=== PATIENT | female | born 1945 | race African-American/Black ===

== ENCOUNTER 2019-01-12 07:21 | Inpatient (IN) ==
[2019-01-12] MEDS ORDERED: ONDANSETRON 4 MG/2 ML VIAL IV STA (08:04)
[2019-01-12] MEDS ORDERED: SODIUM CHLORIDE 0.9% 1,000 ML IV STA (08:04)
[2019-01-12 09:24] LABS: Albumin 3.3 G/DL (3.4-5.0); Bilirubin,Total 0.4 MG/DL (0.2-1.0); Calcium 8.6 MG/DL (8.5-10.1); Osmolality,Calculated 274.7 MOS/KG (273-304); Total Protein 7.7 G/DL (6.4-8.3)
[2019-01-12 10:07] LABS: Basophils % 0.3 % (0.0-0.8); Lymphocytes # 0.6 10*3/uL (1.4-4.0); Lymphocytes % 16.6 % (21.3-54.2); Mean Platelet Volume 9.9 FL (9.6-12.0); Monocytes % 17.4 % (1.7-12.7); Neutrophils % 65.7 % (38.7-73.9); Platelet Count 217 T/CUMM (130-400); Red Blood Count 5.06 MC/CUMM (3.8-5.5); Red Cell Distribution Width 16.6 % (9.3-17.3); White Blood Count 3.4 T/CUMM (4-12)
[2019-01-12 10:34] LABS: Band Neutrophils 13 % (0-10); Hypochromasia 1+; Lymphocytes 18 % (20-55); Platelet Estimate Adequate; Segmented Neutrophils 50 % (50-85); Total Cells Counted 100
[2019-01-12] MEDS ORDERED: ACETAMINOPHEN 325 MG TABLET ONE (10:37)
[2019-01-12] MEDS ORDERED: ACETAMINOPHEN 325 MG TABLET PO ONE (10:43)
[2019-01-12 13:21] LABS: Apearance,Urine CLEAR (Clear); Bilirubin,Urine Negative (Negative); Blood, Urine Small mg/dL (Negative); Glucose,Urine (UA) Negative (Negative); Ketones,Urine Negative (Negative); Mucus,Urine Occasional /LPF (Occasional); Nitrite,Urine Negative (Negative); Protein,Urine Negative; RBC,Urine 1 /HPF (0-4); Squamous Epithelial Cell,Urine Occasional /HPF (0-10); Urine Color Yellow (Yellow); Urine Specific Gravity 1.018 (1.001-1.035); Urine Urobilinogen < 2.0 EU/DL (0.2-1.0); WBC,Urine 1 /HPF (0-6)
[2019-01-12] MEDS: VANCOMYCIN 50 MG/ML 60 ML/BOTTLE PO SCH ×2 (15:13→18:32)
[2019-01-12] MEDS: metroNIDAZOLE INJ 500 MG in PREMIX 1 EACH IV SCH ×2 (15:13→21:43)
[2019-01-12] MEDS: CIPROFLOXACIN INJ 400 MG in PREMIX 1 EACH IV SCH (15:14)
[2019-01-12] MEDS ORDERED: ACETAMINOPHEN 325 MG TABLET PO PRN (18:42)
[2019-01-12] MEDS ORDERED: MAPROTILINE PO SCH (21:00)
[2019-01-12] MEDS: CHOLESTYRAMINE 4 GM PACK PO SCH (21:44)
[2019-01-13] MEDS: CIPROFLOXACIN INJ 400 MG in PREMIX 1 EACH IV SCH ×2 (00:04→14:28)
[2019-01-13] MEDS: VANCOMYCIN 50 MG/ML 60 ML/BOTTLE PO SCH ×5 (00:04→23:40)
[2019-01-13 05:23] LABS: Calcium 8.2 MG/DL (8.5-10.1); Osmolality,Calculated 274.5 MOS/KG (273-304)
[2019-01-13] MEDS: metroNIDAZOLE INJ 500 MG in PREMIX 1 EACH IV SCH ×2 (05:44→14:31)
[2019-01-13 06:43] LABS: Basophils % 0.5 % (0.0-0.8); Eosinophils # 0.1 10*3/uL (0.0-0.87); Hematocrit 37.7 VOL% (35.7-47.0); Immature Granulocytes % 0.3 %; Immature Granulocytes Absolute 0.01 #; Lymphocytes # 1.2 10*3/uL (1.4-4.0); Lymphocytes % 28.8 % (21.3-54.2); Mean Corpuscular HGB Conc 30.8 GM/DL (32-36); Mean Corpuscular Volume 82.3 FL (87-102); Mean Platelet Volume 9.5 FL (9.6-12.0); Monocytes % 19.3 % (1.7-12.7); Neutrophils % 49.1 % (38.7-73.9); Platelet Count 209 T/CUMM (130-400); Red Blood Count 4.58 MC/CUMM (3.8-5.5); Red Cell Distribution Width 16.6 % (9.3-17.3)
[2019-01-13 06:47] LABS: Hemoglobin 11.6 GM/DL (12.0-16.0)
[2019-01-13 06:49] LABS: Band Neutrophils 11 % (0-10); Eosinophils 3 % (0-10); Lymphocytes 30 % (20-55); Metamyelocytes 2 %; Platelet Estimate Normal; Segmented Neutrophils 33 % (50-85); Total Cells Counted 100
[2019-01-13 06:50] LABS: Anisocytosis 1+; Macrocytosis 1+
[2019-01-13] MEDS: CHOLESTYRAMINE 4 GM PACK PO SCH ×2 (09:45→21:21)
[2019-01-13] MEDS: FUROSEMIDE 20 MG TABLET PO SCH (09:45)
[2019-01-13] MEDS: POTASSIUM CHLORIDE 20 MEQ TABLET PO SCH (09:45)
[2019-01-13] MEDS: METOPROLOL TARTRATE 25 MG TABLET PO SCH (09:45)
[2019-01-13] MEDS: LOSARTAN/HCTZ 50-12.5 MG TABLET PO SCH (09:48)
[2019-01-13] MEDS: LOSARTAN 50 MG TABLET PO SCH (09:48)
[2019-01-13] MEDS: PIPERACILLIN/TAZOBACTAM 3,375 MG in SODIUM CHLORIDE 0.9% 100 ML IV SCH ×2 (17:02→23:40)
[2019-01-13] MEDS ORDERED: ONDANSETRON 4 MG/2 ML VIAL IV PRN (18:57)
[2019-01-13] MEDS: busPIRone 5 MG TABLET PO SCH (23:56)
[2019-01-14] MEDS: VANCOMYCIN 50 MG/ML 60 ML/BOTTLE PO SCH ×4 (06:03→23:43)
[2019-01-14] MEDS: FUROSEMIDE 20 MG TABLET PO SCH (08:56)
[2019-01-14] MEDS: METOPROLOL TARTRATE 25 MG TABLET PO SCH (08:56)
[2019-01-14] MEDS: LOSARTAN/HCTZ 50-12.5 MG TABLET PO SCH (08:56)
[2019-01-14] MEDS: LOSARTAN 50 MG TABLET PO SCH (08:57)
[2019-01-14] MEDS: POTASSIUM CHLORIDE 20 MEQ TABLET PO SCH (08:57)
[2019-01-14] MEDS: PIPERACILLIN/TAZOBACTAM 3,375 MG in SODIUM CHLORIDE 0.9% 100 ML IV SCH ×3 (08:58→23:40)
[2019-01-14] MEDS: busPIRone 5 MG TABLET PO SCH ×2 (09:01→23:48)
[2019-01-14] MEDS: CHOLESTYRAMINE 4 GM PACK PO SCH ×2 (09:01→23:48)
[2019-01-15 05:00] LABS: Basophils % 0.5 % (0.0-0.8); Eosinophils # 0.2 10*3/uL (0.0-0.87); Hematocrit 39.9 VOL% (35.7-47.0); Hemoglobin 12.1 GM/DL (12.0-16.0); Immature Granulocytes % 0.3 %; Immature Granulocytes Absolute 0.01 #; Lymphocytes # 1.7 10*3/uL (1.4-4.0); Lymphocytes % 45.6 % (21.3-54.2); Mean Corpuscular HGB Conc 30.3 GM/DL (32-36); Mean Corpuscular Volume 82.8 FL (87-102); Mean Platelet Volume 9.1 FL (9.6-12.0); Monocytes % 10.6 % (1.7-12.7); Platelet Count 215 T/CUMM (130-400); Red Blood Count 4.82 MC/CUMM (3.8-5.5); Red Cell Distribution Width 15.9 % (9.3-17.3); White Blood Count 3.8 T/CUMM (4-12)
[2019-01-15] MEDS: VANCOMYCIN 50 MG/ML 60 ML/BOTTLE PO SCH ×3 (05:33→19:04)
[2019-01-15 05:46] LABS: Eosinophils 4 % (0-10); Hypochromasia Slight; Lymphocytes 46 % (20-55); Platelet Estimate Adequate; Polychromasia Few; Segmented Neutrophils 45 % (50-85); Total Cells Counted 100
[2019-01-15 05:47] LABS: Calcium 8.7 MG/DL (8.5-10.1); Osmolality,Calculated 274.5 MOS/KG (273-304)
[2019-01-15] MEDS: PIPERACILLIN/TAZOBACTAM 3,375 MG in SODIUM CHLORIDE 0.9% 100 ML IV SCH ×2 (09:22→16:47)
[2019-01-15] MEDS: busPIRone 5 MG TABLET PO SCH ×2 (09:23→21:56)
[2019-01-15] MEDS: LOSARTAN 50 MG TABLET PO SCH (09:24)
[2019-01-15] MEDS: LOSARTAN/HCTZ 50-12.5 MG TABLET PO SCH (09:24)
[2019-01-15] MEDS: FUROSEMIDE 20 MG TABLET PO SCH (09:24)
[2019-01-15] MEDS: POTASSIUM CHLORIDE 20 MEQ TABLET PO SCH (09:24)
[2019-01-15] MEDS: CHOLESTYRAMINE 4 GM PACK PO SCH ×2 (09:25→21:55)
[2019-01-15] MEDS: METOPROLOL TARTRATE 25 MG TABLET PO SCH (09:25)
[2019-01-15] MEDS: LACTOBACILLUS RHAMNOSUS GG CAPSULE PO SCH (21:56)
[2019-01-16] MEDS: VANCOMYCIN 50 MG/ML 60 ML/BOTTLE PO SCH ×3 (00:55→13:00)
[2019-01-16] MEDS: PIPERACILLIN/TAZOBACTAM 3,375 MG in SODIUM CHLORIDE 0.9% 100 ML IV SCH ×3 (01:22→17:37)
[2019-01-16 08:07] LABS: Basophils % 0.6 % (0.0-0.8); Eosinophils # 0.2 10*3/uL (0.0-0.87); Eosinophils % 3.5 % (0.00-10.9); Hematocrit 45.5 VOL% (35.7-47.0); Hemoglobin 14.1 GM/DL (12.0-16.0); Immature Granulocytes % 0.4 %; Immature Granulocytes Absolute 0.02 #; Lymphocytes # 1.8 10*3/uL (1.4-4.0); Lymphocytes % 35.5 % (21.3-54.2); Mean Platelet Volume 8.9 FL (9.6-12.0); Monocytes % 12.8 % (1.7-12.7); Neutrophils % 47.2 % (38.7-73.9); Platelet Count 260 T/CUMM (130-400); Red Blood Count 5.48 MC/CUMM (3.8-5.5); Red Cell Distribution Width 15.9 % (9.3-17.3); White Blood Count 5.2 T/CUMM (4-12)
[2019-01-16 08:27] LABS: Band Neutrophils 1 % (0-10); Eosinophils 3 % (0-10); Hypochromasia 1+; Lymphocytes 33 % (20-55); Ovalocytes Slight; Platelet Estimate Adequate; Segmented Neutrophils 55 % (50-85); Total Cells Counted 100
[2019-01-16 08:35] LABS: Calcium 9.6 MG/DL (8.5-10.1); Osmolality,Calculated 276.5 MOS/KG (273-304)
[2019-01-16] MEDS: CHOLESTYRAMINE 4 GM PACK PO SCH ×2 (09:07→22:28)
[2019-01-16] MEDS: FUROSEMIDE 20 MG TABLET PO SCH (09:08)
[2019-01-16] MEDS: LOSARTAN/HCTZ 50-12.5 MG TABLET PO SCH (09:08)
[2019-01-16] MEDS: METOPROLOL TARTRATE 25 MG TABLET PO SCH (09:09)
[2019-01-16] MEDS: LOSARTAN 50 MG TABLET PO SCH (09:09)
[2019-01-16] MEDS: LACTOBACILLUS RHAMNOSUS GG CAPSULE PO SCH ×2 (09:09→22:28)
[2019-01-16] MEDS: busPIRone 5 MG TABLET PO SCH ×3 (09:09→22:32)
[2019-01-16] MEDS: POTASSIUM CHLORIDE 20 MEQ TABLET PO SCH (09:09)
[2019-01-17] MEDS: PIPERACILLIN/TAZOBACTAM 3,375 MG in SODIUM CHLORIDE 0.9% 100 ML IV SCH ×2 (01:45→09:42)
[2019-01-17 05:21] LABS: Basophils % 0.5 % (0.0-0.8); Eosinophils # 0.3 10*3/uL (0.0-0.87); Eosinophils % 4.5 % (0.00-10.9); Hematocrit 41.4 VOL% (35.7-47.0); Hemoglobin 12.8 GM/DL (12.0-16.0); Immature Granulocytes % 0.5 %; Immature Granulocytes Absolute 0.03 #; Lymphocytes # 2.2 10*3/uL (1.4-4.0); Mean Corpuscular HGB Conc 30.9 GM/DL (32-36); Mean Corpuscular Volume 81.7 FL (87-102); Mean Platelet Volume 8.9 FL (9.6-12.0); Monocytes % 12.7 % (1.7-12.7); Neutrophils % 43.8 % (38.7-73.9); Platelet Count 241 T/CUMM (130-400); Red Blood Count 5.07 MC/CUMM (3.8-5.5); White Blood Count 5.8 T/CUMM (4-12)
[2019-01-17 05:35] LABS: Calcium 9.3 MG/DL (8.5-10.1); Osmolality,Calculated 277.4 MOS/KG (273-304)
[2019-01-17] MEDS: hydrOXYzine HCL 25 MG TABLET PO PRN ×2 (05:43→10:09)
[2019-01-17 06:05] LABS: Anisocytosis 1+; Platelet Estimate Adequate
[2019-01-17] MEDS: VANCOMYCIN 50 MG/ML 60 ML/BOTTLE PO SCH ×2 (07:50→14:37)
[2019-01-17] MEDS: LOSARTAN 50 MG TABLET PO SCH (10:08)
[2019-01-17] MEDS: LACTOBACILLUS RHAMNOSUS GG CAPSULE PO SCH (10:08)
[2019-01-17] MEDS: METOPROLOL TARTRATE 25 MG TABLET PO SCH (10:08)
[2019-01-17] MEDS: FUROSEMIDE 20 MG TABLET PO SCH (10:08)
[2019-01-17] MEDS: busPIRone 5 MG TABLET PO SCH (10:08)
[2019-01-17] MEDS: LOSARTAN/HCTZ 50-12.5 MG TABLET PO SCH (10:08)
[2019-01-17] MEDS: POTASSIUM CHLORIDE 20 MEQ TABLET PO SCH (10:08)
[2019-01-17] MEDS: CHOLESTYRAMINE 4 GM PACK PO SCH (10:09)
[2019-01-17 12:21] VITALS: BP 111/70
== END 2019-01-17 15:31 | disposition home health service (06) | DRG 372 ==
LOC: EDBD → EDUNIT# → N.ED 07:21 → N.EDINP 11:47 → SUATTDRO 11:47 → N.TELEN 12:23
PROVIDERS: ADMIT Nurse Practitioner Family; ATTEND Internal Medicine

== ENCOUNTER 2019-02-11 13:11 | Inpatient (IN) ==
[2019-02-11] MEDS ORDERED: SODIUM CHLORIDE 0.9% 1,000 ML IV STA (13:26)
[2019-02-11] MEDS ORDERED: ONDANSETRON 4 MG/2 ML VIAL IV STA (13:26)
[2019-02-11 14:18] LABS: Basophils % 0.4 % (0.0-0.8); Eosinophils % 0.4 % (0.00-10.9); Hematocrit 30.9 VOL% (35.7-47.0); Hemoglobin 9.6 GM/DL (12.0-16.0); Immature Granulocytes % 0.6 %; Immature Granulocytes Absolute 0.03 #; Lymphocytes # 0.8 10*3/uL (1.4-4.0); Mean Corpuscular HGB Conc 31.1 GM/DL (32-36); Mean Corpuscular Volume 80.1 FL (87-102); Mean Platelet Volume 8.7 FL (9.6-12.0); Monocytes % 14.3 % (1.7-12.7); Neutrophils % 68.3 % (38.7-73.9); Platelet Count 384 T/CUMM (130-400); Red Blood Count 3.86 MC/CUMM (3.8-5.5); Red Cell Distribution Width 16.9 % (9.3-17.3); White Blood Count 5.1 T/CUMM (4-12)
[2019-02-11 14:28] LABS: Apearance,Urine Slightly Hazy (Clear); Bacteria,Urine Occasional /HPF (Few); Bilirubin,Urine Negative (Negative); Blood, Urine Small mg/dL (Negative); Glucose,Urine (UA) Negative (Negative); Hyaline Casts,Urine 1 /LPF (0-3); Ketones,Urine Negative (Negative); Mucus,Urine Occasional /LPF (Occasional); Nitrite,Urine Positive (Negative); Protein,Urine Negative; RBC,Urine 1 /HPF (0-4); Squamous Epithelial Cell,Urine Occasional /HPF (0-10); Urine Color Yellow (Yellow); Urine Specific Gravity 1.011 (1.001-1.035); Urine Urobilinogen < 2.0 EU/DL (0.2-1.0); WBC,Urine 13 /HPF (0-6)
[2019-02-11 14:44] LABS: Albumin 2.4 G/DL (3.4-5.0); Bilirubin,Total 0.4 MG/DL (0.2-1.0); Calcium 8.5 MG/DL (8.5-10.1); Osmolality,Calculated 261.5 MOS/KG (273-304); Total Protein 7.2 G/DL (6.4-8.3)
[2019-02-11 14:52] LABS: Anisocytosis 1+; Atypical Lymphocytes 1+; Band Neutrophils 2 % (0-10); Eosinophils 2 % (0-10); Hypochromasia 1+; Lymphocytes 14 % (20-55); Microcytosis 1+; Segmented Neutrophils 73 % (50-85); Total Cells Counted 100
[2019-02-11 14:53] LABS: Platelet Estimate Normal; Polychromasia Slight
[2019-02-11] MEDS ORDERED: cefTRIAXone 1,000 MG VIAL ONE (15:47)
[2019-02-11] MEDS ORDERED: SODIUM CHLORIDE 0.9% 100 ML IV ONE (15:48)
[2019-02-11] MEDS ORDERED: cefTRIAXone 1,000 MG in SODIUM CHLORIDE 0.9% 100 ML IV STA (15:53)
[2019-02-11] MEDS ORDERED: MORPHINE 4 MG/1 ML VIAL IV PRN (16:42)
[2019-02-11] MEDS ORDERED: PROMETHAZINE 25 MG/1 ML VIAL IM PRN (16:42)
[2019-02-11] MEDS: ONDANSETRON 4 MG/2 ML VIAL IV PRN (16:54)
[2019-02-11] MEDS: DEXTROSE 5% NACL 0.45% 1,000 ML IV SCH (18:15)
[2019-02-11] MEDS: metroNIDAZOLE INJ 500 MG in PREMIX 1 EACH IV SCH (18:20)
[2019-02-11] MEDS: CEFEPIME 2,000 MG in SYRINGE 1 EACH IV SCH (18:23)
[2019-02-11] MEDS ORDERED: predniSONE 50 MG TABLET PO ONE (18:24)
[2019-02-11] MEDS: FAMOTIDINE 20 MG/2 ML VIAL IV SCH (18:27)
[2019-02-11] MEDS: PANTOPRAZOLE 40 MG TABLET PO SCH (18:29)
[2019-02-11] MEDS: POTASSIUM CHLORIDE 20 MEQ TABLET PO SCH ×2 (18:29→20:59)
[2019-02-11] MEDS: hydrOXYzine HCL 25 MG TABLET PO PRN (18:37)
[2019-02-11] MEDS ORDERED: predniSONE 10 MG TABLET ONE (19:04)
[2019-02-11] MEDS: ACETAMINOPHEN 500 MG TABLET PO PRN (19:28)
[2019-02-11] MEDS: VANCOMYCIN 50 MG/ML 60 ML/BOTTLE PO SCH (19:56)
[2019-02-11] MEDS: CHOLESTYRAMINE 4 GM PACK PO SCH (20:58)
[2019-02-11] MEDS: busPIRone 5 MG TABLET PO SCH (20:59)
[2019-02-11] MEDS ORDERED: MAPROTILINE PO SCH (21:00)
[2019-02-12] MEDS ORDERED: CEFEPIME 1,000 MG in SYRINGE 1 EACH IV SCH
[2019-02-12] MEDS: VANCOMYCIN 50 MG/ML 60 ML/BOTTLE PO SCH ×4 (00:50→18:02)
[2019-02-12] MEDS: CEFEPIME 2,000 MG in SYRINGE 1 EACH IV SCH ×3 (00:51→17:56)
[2019-02-12] MEDS: metroNIDAZOLE INJ 500 MG in PREMIX 1 EACH IV SCH ×3 (00:52→17:43)
[2019-02-12] MEDS: FAMOTIDINE 20 MG/2 ML VIAL IV SCH ×2 (04:58→17:41)
[2019-02-12] MEDS: DEXTROSE 5% NACL 0.45% 1,000 ML IV SCH ×4 (05:02→17:00)
[2019-02-12 05:20] LABS: Basophils % 0.3 % (0.0-0.8); Hematocrit 32.5 VOL% (35.7-47.0); Hemoglobin 9.8 GM/DL (12.0-16.0); Immature Granulocytes % 0.5 %; Immature Granulocytes Absolute 0.02 #; Lymphocytes # 0.5 10*3/uL (1.4-4.0); Lymphocytes % 12.4 % (21.3-54.2); Mean Corpuscular HGB Conc 30.2 GM/DL (32-36); Mean Corpuscular Volume 80.6 FL (87-102); Mean Platelet Volume 8.6 FL (9.6-12.0); Monocytes % 4.3 % (1.7-12.7); Neutrophils % 82.5 % (38.7-73.9); Platelet Count 478 T/CUMM (130-400); Red Blood Count 4.03 MC/CUMM (3.8-5.5); Red Cell Distribution Width 16.8 % (9.3-17.3); White Blood Count 3.7 T/CUMM (4-12)
[2019-02-12 06:00] LABS: Albumin 2.4 G/DL (3.4-5.0); Bilirubin,Total 0.5 MG/DL (0.2-1.0); Calcium 8.9 MG/DL (8.5-10.1); Osmolality,Calculated 275.7 MOS/KG (273-304); Risk Ratio 3.56; Thyroid Stimulating Hormone 0.577 uIU/ml (0.358-3.74); Total Protein 7.4 G/DL (6.4-8.3); VLDL CHOLESTEROL 17.4 MG/DL
[2019-02-12] MEDS ORDERED: predniSONE 20 MG TABLET PO ONE ×2 (06:00)
[2019-02-12] MEDS ORDERED: diphenhydrAMINE CAP 50 MG CAPSULE PO ONE (06:00)
[2019-02-12 06:21] LABS: Band Neutrophils 12 % (0-10); Hypochromasia Slight; Lymphocytes 10 % (20-55); Platelet Estimate Normal; Segmented Neutrophils 78 % (50-85); Total Cells Counted 100
[2019-02-12 06:22] LABS: Polychromasia Few
[2019-02-12] MEDS: hydroCHLOROthiazide 25 MG TABLET PO SCH (09:36)
[2019-02-12] MEDS: OLMESARTAN 20 MG TABLET PO SCH (09:36)
[2019-02-12] MEDS: METOPROLOL TARTRATE 25 MG TABLET PO SCH (09:37)
[2019-02-12] MEDS: PANTOPRAZOLE 40 MG TABLET PO SCH (09:37)
[2019-02-12] MEDS: busPIRone 5 MG TABLET PO SCH ×2 (09:37→22:03)
[2019-02-12] MEDS: ASPIRIN EC 81 MG TABLET PO SCH (09:38)
[2019-02-12] MEDS: CHOLESTYRAMINE 4 GM PACK PO SCH ×2 (10:08→22:03)
[2019-02-12] MEDS: hydrOXYzine HCL 25 MG TABLET PO PRN (17:40)
[2019-02-12] MEDS: ACETAMINOPHEN 500 MG TABLET PO PRN (19:59)
[2019-02-13] MEDS: hydrOXYzine HCL 25 MG TABLET PO PRN ×2 (00:14→11:49)
[2019-02-13] MEDS: metroNIDAZOLE INJ 500 MG in PREMIX 1 EACH IV SCH ×3 (00:16→16:22)
[2019-02-13] MEDS: DEXTROSE 5% NACL 0.45% 1,000 ML IV SCH ×4 (00:17→19:27)
[2019-02-13] MEDS: VANCOMYCIN 50 MG/ML 60 ML/BOTTLE PO SCH ×4 (00:19→18:29)
[2019-02-13] MEDS: CEFEPIME 2,000 MG in SYRINGE 1 EACH IV SCH ×3 (02:28→17:24)
[2019-02-13 04:39] LABS: Basophils % 0.3 % (0.0-0.8); Hematocrit 30.6 VOL% (35.7-47.0); Hemoglobin 9.4 GM/DL (12.0-16.0); Immature Granulocytes % 0.5 %; Immature Granulocytes Absolute 0.03 #; Lymphocytes # 1.3 10*3/uL (1.4-4.0); Lymphocytes % 21.6 % (21.3-54.2); Mean Corpuscular HGB Conc 30.7 GM/DL (32-36); Mean Corpuscular Volume 79.5 FL (87-102); Mean Platelet Volume 8.7 FL (9.6-12.0); Monocytes % 13.6 % (1.7-12.7); Platelet Count 500 T/CUMM (130-400); Red Blood Count 3.85 MC/CUMM (3.8-5.5); Red Cell Distribution Width 16.7 % (9.3-17.3)
[2019-02-13 05:06] LABS: Calcium 8.7 MG/DL (8.5-10.1); Osmolality,Calculated 274.7 MOS/KG (273-304)
[2019-02-13 05:50] LABS: Band Neutrophils 3 % (0-10); Hypochromasia 1+; Lymphocytes 14 % (20-55); Microcytosis 1+; Segmented Neutrophils 66 % (50-85); Total Cells Counted 100
[2019-02-13 05:51] LABS: Platelet Estimate Increased
[2019-02-13] MEDS: FAMOTIDINE 20 MG/2 ML VIAL IV SCH ×2 (06:16→16:20)
[2019-02-13] MEDS: ACETAMINOPHEN 500 MG TABLET PO PRN (06:16)
[2019-02-13] MEDS ORDERED: DIAZEPAM 5 MG TABLET PO ONE (08:45)
[2019-02-13] MEDS ORDERED: NITROGLYCERIN SL 0.4 MG TABLET SL ONE ×2 (11:39→11:48)
[2019-02-13] MEDS ORDERED: ALUM/MAG/SIMETH/LIDO VISC 1:1 30 ML BOTTLE PO ONE (11:46)
[2019-02-13] MEDS ORDERED: MAGNESIUM HYDROXIDE SUSP 30 ML UDCUP PO PRN (11:47)
[2019-02-13] MEDS: PANTOPRAZOLE 40 MG TABLET PO SCH (12:48)
[2019-02-13] MEDS: ASPIRIN EC 81 MG TABLET PO SCH (12:48)
[2019-02-13] MEDS: busPIRone 5 MG TABLET PO SCH ×2 (12:48→20:40)
[2019-02-13] MEDS: hydroCHLOROthiazide 25 MG TABLET PO SCH ×2 (12:48→16:14)
[2019-02-13] MEDS: OLMESARTAN 20 MG TABLET PO SCH ×2 (12:48→16:14)
[2019-02-13] MEDS: METOPROLOL TARTRATE 25 MG TABLET PO SCH ×2 (12:48→16:14)
[2019-02-13] MEDS: CHOLESTYRAMINE 4 GM PACK PO SCH ×2 (12:49→21:23)
[2019-02-13 14:53] LABS: Troponin I < 0.015 NG/ML (0.00-0.045)
[2019-02-13 17:24] LABS: Troponin I < 0.015 NG/ML (0.00-0.045)
[2019-02-13] MEDS: ACETAMINOPHEN 325 MG TABLET PO PRN (18:25)
[2019-02-13] MEDS: ENOXAPARIN 40 MG/0.4 ML SYRINGE SUBCUT SCH (20:44)
[2019-02-13] MEDS: ONDANSETRON 4 MG/2 ML VIAL IV PRN (21:19)
[2019-02-14] MEDS: VANCOMYCIN 50 MG/ML 60 ML/BOTTLE PO SCH ×4 (00:28→17:44)
[2019-02-14] MEDS: metroNIDAZOLE INJ 500 MG in PREMIX 1 EACH IV SCH ×3 (00:34→17:24)
[2019-02-14] MEDS: CEFEPIME 2,000 MG in SYRINGE 1 EACH IV SCH ×3 (01:41→17:21)
[2019-02-14] MEDS: POTASSIUM CHLORIDE 20 MEQ TABLET PO PRN ×4 (01:41→10:40)
[2019-02-14] MEDS: DEXTROSE 5% NACL 0.45% 1,000 ML IV SCH ×2 (04:01→16:42)
[2019-02-14] MEDS: FAMOTIDINE 20 MG/2 ML VIAL IV SCH ×2 (05:27→17:23)
[2019-02-14] MEDS: OLMESARTAN 20 MG TABLET PO SCH (08:46)
[2019-02-14] MEDS: METOPROLOL TARTRATE 25 MG TABLET PO SCH (08:46)
[2019-02-14] MEDS: PANTOPRAZOLE 40 MG TABLET PO SCH (08:46)
[2019-02-14] MEDS: ASPIRIN EC 81 MG TABLET PO SCH (08:47)
[2019-02-14] MEDS: CHOLESTYRAMINE 4 GM PACK PO SCH ×2 (08:47→20:31)
[2019-02-14] MEDS: hydroCHLOROthiazide 25 MG TABLET PO SCH (08:47)
[2019-02-14] MEDS: ACETAMINOPHEN 325 MG TABLET PO PRN (10:04)
[2019-02-14] MEDS: busPIRone 5 MG TABLET PO SCH ×2 (10:04→20:41)
[2019-02-14] MEDS: ONDANSETRON 4 MG/2 ML VIAL IV PRN (17:21)
[2019-02-14] MEDS: hydrOXYzine HCL 25 MG TABLET PO PRN (17:48)
[2019-02-14] MEDS: ENOXAPARIN 40 MG/0.4 ML SYRINGE SUBCUT SCH (20:41)
[2019-02-15] MEDS: VANCOMYCIN 50 MG/ML 60 ML/BOTTLE PO SCH ×4 (00:34→17:07)
[2019-02-15] MEDS: DEXTROSE 5% NACL 0.45% 1,000 ML IV SCH ×5 (01:08→21:29)
[2019-02-15] MEDS: metroNIDAZOLE INJ 500 MG in PREMIX 1 EACH IV SCH ×3 (01:09→17:32)
[2019-02-15] MEDS: CEFEPIME 2,000 MG in SYRINGE 1 EACH IV SCH ×3 (01:10→16:38)
[2019-02-15] MEDS: FAMOTIDINE 20 MG/2 ML VIAL IV SCH ×2 (05:13→16:37)
[2019-02-15] MEDS: ONDANSETRON 4 MG/2 ML VIAL IV PRN ×2 (05:15→21:18)
[2019-02-15 05:56] LABS: Basophils % 0.2 % (0.0-0.8); Eosinophils % 0.1 % (0.00-10.9); Hematocrit 30.7 VOL% (35.7-47.0); Hemoglobin 9.6 GM/DL (12.0-16.0); Immature Granulocytes % 1.6 %; Immature Granulocytes Absolute 0.22 #; Lymphocytes # 1.2 10*3/uL (1.4-4.0); Lymphocytes % 8.8 % (21.3-54.2); Mean Corpuscular HGB Conc 31.3 GM/DL (32-36); Mean Corpuscular Volume 78.3 FL (87-102); Mean Platelet Volume 8.8 FL (9.6-12.0); Monocytes % 7.2 % (1.7-12.7); Neutrophils % 82.1 % (38.7-73.9); Platelet Count 434 T/CUMM (130-400); Red Blood Count 3.92 MC/CUMM (3.8-5.5); White Blood Count 13.7 T/CUMM (4-12)
[2019-02-15 06:33] LABS: Calcium 8.6 MG/DL (8.5-10.1); Osmolality,Calculated 268.1 MOS/KG (273-304)
[2019-02-15] MEDS ORDERED: SODIUM CHLORIDE 0.9% 500 ML IV ONE (06:42)
[2019-02-15] MEDS: PANTOPRAZOLE 40 MG TABLET PO SCH (09:07)
[2019-02-15] MEDS: CHOLESTYRAMINE 4 GM PACK PO SCH ×2 (09:07→21:24)
[2019-02-15] MEDS: hydroCHLOROthiazide 25 MG TABLET PO SCH (09:07)
[2019-02-15] MEDS: METOPROLOL TARTRATE 25 MG TABLET PO SCH (09:07)
[2019-02-15] MEDS: busPIRone 5 MG TABLET PO SCH ×2 (09:07→21:22)
[2019-02-15] MEDS: ASPIRIN EC 81 MG TABLET PO SCH (09:07)
[2019-02-15] MEDS: OLMESARTAN 20 MG TABLET PO SCH (09:07)
[2019-02-15] MEDS: POTASSIUM CHLORIDE 20 MEQ TABLET PO PRN (13:26)
[2019-02-15] MEDS: VANCOMYCIN INJ 1,250 MG in SODIUM CHLORIDE 0.9% 250 ML IV SCH (15:36)
[2019-02-15] MEDS: ENOXAPARIN 40 MG/0.4 ML SYRINGE SUBCUT SCH (21:21)
[2019-02-16] MEDS: VANCOMYCIN 50 MG/ML 60 ML/BOTTLE PO SCH ×5 (00:24→23:40)
[2019-02-16] MEDS: metroNIDAZOLE INJ 500 MG in PREMIX 1 EACH IV SCH (01:36)
[2019-02-16] MEDS: CEFEPIME 2,000 MG in SYRINGE 1 EACH IV SCH ×3 (01:36→17:00)
[2019-02-16] MEDS: DEXTROSE 5% NACL 0.45% 1,000 ML IV SCH ×5 (03:33→11:36)
[2019-02-16 05:04] LABS: Basophils % 0.2 % (0.0-0.8); Eosinophils # 0.1 10*3/uL (0.0-0.87); Eosinophils % 0.6 % (0.00-10.9); Hematocrit 31.1 VOL% (35.7-47.0); Hemoglobin 9.7 GM/DL (12.0-16.0); Immature Granulocytes % 1.7 %; Lymphocytes # 1.6 10*3/uL (1.4-4.0); Lymphocytes % 13.1 % (21.3-54.2); Mean Corpuscular HGB Conc 31.2 GM/DL (32-36); Mean Corpuscular Volume 79.1 FL (87-102); Mean Platelet Volume 8.4 FL (9.6-12.0); Monocytes % 7.3 % (1.7-12.7); Neutrophils % 77.1 % (38.7-73.9); Platelet Count 434 T/CUMM (130-400); Red Blood Count 3.93 MC/CUMM (3.8-5.5); Red Cell Distribution Width 16.8 % (9.3-17.3); White Blood Count 12.1 T/CUMM (4-12)
[2019-02-16 05:24] LABS: Alanine Aminotransferase < 9 U/L (13-56); Albumin 2.1 G/DL (3.4-5.0); Alkaline Phosphatase 66 U/L (45-117); Aspartate Amino Transferase 8 U/L (0-37); Blood Urea Nitrogen 6 MG/DL (7-18); Calcium 8.6 MG/DL (8.5-10.1); Glucose 107 MG/DL (74-106); Osmolality,Calculated 272.7 MOS/KG (273-304); Total Protein 6.7 G/DL (6.4-8.3)
[2019-02-16] MEDS: FAMOTIDINE 20 MG/2 ML VIAL IV SCH ×2 (05:39→17:02)
[2019-02-16] MEDS: ONDANSETRON 4 MG/2 ML VIAL IV PRN ×2 (05:41→16:19)
[2019-02-16 05:45] LABS: Anisocytosis 1+; Atypical Lymphocytes Few; Band Neutrophils 3 % (0-10); Eosinophils 2 % (0-10); Lymphocytes 12 % (20-55); Platelet Estimate Adequate; Segmented Neutrophils 80 % (50-85); Total Cells Counted 100
[2019-02-16] MEDS ORDERED: FLUCONAZOLE INJ 800 MG in PREMIX 1 EACH IV ONE (08:00)
[2019-02-16] MEDS: OLMESARTAN 20 MG TABLET PO SCH (08:46)
[2019-02-16] MEDS: PANTOPRAZOLE 40 MG TABLET PO SCH (08:46)
[2019-02-16] MEDS: ASPIRIN EC 81 MG TABLET PO SCH (08:46)
[2019-02-16] MEDS: hydroCHLOROthiazide 25 MG TABLET PO SCH (08:46)
[2019-02-16] MEDS: hydrOXYzine HCL 25 MG TABLET PO PRN ×2 (08:46→15:10)
[2019-02-16] MEDS: METOPROLOL TARTRATE 25 MG TABLET PO SCH (08:46)
[2019-02-16] MEDS: busPIRone 5 MG TABLET PO SCH ×2 (08:46→20:58)
[2019-02-16] MEDS: VANCOMYCIN INJ 1,250 MG in SODIUM CHLORIDE 0.9% 250 ML IV SCH (08:51)
[2019-02-16] MEDS: CHOLESTYRAMINE 4 GM PACK PO SCH ×2 (09:50→21:06)
[2019-02-16] MEDS: MAPROTILINE PO SCH ×2 (10:26→21:06)
[2019-02-16] MEDS: ACETAMINOPHEN 325 MG TABLET PO PRN (20:58)
[2019-02-16] MEDS: hydrALAZINE 10 MG TABLET PO SCH (20:59)
[2019-02-16] MEDS: ENOXAPARIN 40 MG/0.4 ML SYRINGE SUBCUT SCH (21:00)
[2019-02-17] MEDS: CEFEPIME 2,000 MG in SYRINGE 1 EACH IV SCH ×2 (00:45→10:41)
[2019-02-17] MEDS: VANCOMYCIN INJ 1,250 MG in SODIUM CHLORIDE 0.9% 250 ML IV SCH (02:30)
[2019-02-17 04:17] LABS: Basophils % 0.3 % (0.0-0.8); Eosinophils # 0.1 10*3/uL (0.0-0.87); Eosinophils % 0.9 % (0.00-10.9); Hematocrit 29.3 VOL% (35.7-47.0); Hemoglobin 9.1 GM/DL (12.0-16.0); Immature Granulocytes % 1.9 %; Immature Granulocytes Absolute 0.17 #; Lymphocytes # 1.5 10*3/uL (1.4-4.0); Lymphocytes % 16.6 % (21.3-54.2); Mean Corpuscular HGB Conc 31.1 GM/DL (32-36); Mean Corpuscular Volume 78.3 FL (87-102); Mean Platelet Volume 8.5 FL (9.6-12.0); Monocytes % 11.5 % (1.7-12.7); Neutrophils % 68.8 % (38.7-73.9); Platelet Count 387 T/CUMM (130-400); Red Blood Count 3.74 MC/CUMM (3.8-5.5); Red Cell Distribution Width 16.9 % (9.3-17.3); White Blood Count 9.1 T/CUMM (4-12)
[2019-02-17 04:43] LABS: % Iron Saturation 14.7 % (18-50); Calcium 8.4 MG/DL (8.5-10.1); Osmolality,Calculated 272.7 MOS/KG (273-304)
[2019-02-17] MEDS: VANCOMYCIN 50 MG/ML 60 ML/BOTTLE PO SCH ×3 (05:30→17:56)
[2019-02-17] MEDS: FAMOTIDINE 20 MG/2 ML VIAL IV SCH ×2 (05:33→17:23)
[2019-02-17] MEDS ORDERED: FLUCONAZOLE INJ 400 MG in PREMIX 1 EACH IV SCH (09:00)
[2019-02-17] MEDS: OLMESARTAN 20 MG TABLET PO SCH (09:38)
[2019-02-17] MEDS: hydrALAZINE 10 MG TABLET PO SCH ×2 (09:38→15:48)
[2019-02-17] MEDS: SPIRONOLACTONE 25 MG TABLET PO SCH (09:38)
[2019-02-17] MEDS: ASPIRIN EC 81 MG TABLET PO SCH (09:38)
[2019-02-17] MEDS: hydroCHLOROthiazide 25 MG TABLET PO SCH (09:39)
[2019-02-17] MEDS: METOPROLOL TARTRATE 25 MG TABLET PO SCH (09:39)
[2019-02-17] MEDS: FUROSEMIDE 20 MG TABLET PO SCH (09:39)
[2019-02-17] MEDS: PANTOPRAZOLE 40 MG TABLET PO SCH (09:39)
[2019-02-17] MEDS: busPIRone 5 MG TABLET PO SCH ×2 (09:39→20:59)
[2019-02-17] MEDS: CHOLESTYRAMINE 4 GM PACK PO SCH ×2 (09:40→21:04)
[2019-02-17] MEDS: MAPROTILINE PO SCH ×2 (09:48→21:04)
[2019-02-17] MEDS: AMOXICILLIN/CLAV 500 MG TABLET PO SCH ×2 (13:04→20:59)
[2019-02-17] MEDS: hydrOXYzine HCL 25 MG TABLET PO PRN ×2 (15:48→20:59)
[2019-02-17] MEDS: ONDANSETRON 4 MG/2 ML VIAL IV PRN (17:21)
[2019-02-17] MEDS: hydrALAZINE 25 MG TABLET PO SCH (20:59)
[2019-02-17] MEDS: ENOXAPARIN 40 MG/0.4 ML SYRINGE SUBCUT SCH (20:59)
[2019-02-18] MEDS: VANCOMYCIN 50 MG/ML 60 ML/BOTTLE PO SCH ×2 (00:24→05:33)
[2019-02-18] MEDS: FAMOTIDINE 20 MG/2 ML VIAL IV SCH (04:16)
[2019-02-18] MEDS: AMOXICILLIN/CLAV 500 MG TABLET PO SCH (04:18)
[2019-02-18] MEDS: busPIRone 5 MG TABLET PO SCH (08:40)
[2019-02-18] MEDS: OLMESARTAN 20 MG TABLET PO SCH (08:40)
[2019-02-18] MEDS: ASPIRIN EC 81 MG TABLET PO SCH (08:40)
[2019-02-18] MEDS: hydrALAZINE 25 MG TABLET PO SCH (08:40)
[2019-02-18] MEDS: SPIRONOLACTONE 25 MG TABLET PO SCH (08:40)
[2019-02-18] MEDS: METOPROLOL TARTRATE 25 MG TABLET PO SCH (08:41)
[2019-02-18] MEDS: hydroCHLOROthiazide 25 MG TABLET PO SCH (08:41)
[2019-02-18] MEDS: FUROSEMIDE 20 MG TABLET PO SCH (08:41)
[2019-02-18] MEDS: POTASSIUM CHLORIDE 20 MEQ TABLET PO PRN (08:42)
[2019-02-18] MEDS: PANTOPRAZOLE 40 MG TABLET PO SCH (08:42)
[2019-02-18] MEDS: MAPROTILINE PO SCH (08:42)
[2019-02-18] MEDS: CHOLESTYRAMINE 4 GM PACK PO SCH (08:42)
[2019-02-18] MEDS ORDERED: FLUCONAZOLE 200 MG TABLET PO SCH (09:00)
[2019-02-18 11:15] VITALS: BP 143/99
== END 2019-02-18 11:35 | disposition home or self-care (01) | DRG 372 ==
LOC: EDUNIT# → EDBD → N.ED 13:11 → N.EDINP 15:48 → SUATTDRO 15:48 → N.3E 16:41
PROVIDERS: ADMIT Internal Medicine; ATTEND Hospitalist